=== PATIENT | male | born 1965 | race Caucasian/White ===

== ENCOUNTER → 2018-02-23 11:09 | Outpatient (CLI) | payer OTHER, SELFPAY ==
[2018-02-23 17:44] LABS: Basophils # 0.1 K/mm3 (0-0.2); Basophils % 1.7 % (0.1-2.0); Eosinophils # 0.3 K/mm3 (0.0-0.4); Eosinophils % 4.6 % (0.1-12.0); Hematocrit 42.5 % (42.0-52.0); Hemoglobin 13.9 g/dL (14.1-18.0); Lymphocytes # 1.5 K/mm3 (0.7-4.5); Lymphocytes % 23.1 K/mm3 (10-50); Mean Corpuscular HGB Conc 32.8 g/dL (31.8-35.4); Mean Corpuscular Hemoglobin 30.3 pg (27.0-31.2); Mean Corpuscular Volume 92.4 fl (80-94); Mean Platelet Volume 7.4 fl (7.4-10.4); Monocytes # 0.3 K/mm3 (0.1-1.0); Monocytes % 4.8 % (1.7-9.3); Neutrophils # 4.3 K/mm3 (1.8-7.8); Neutrophils % 65.7 % (37.0-80.0); Platelet Count 282 K/mm3 (142-424); Red Cell Distribution Width 13.1 % (11.5-17.5); White Blood Count 6.6 K/mm3 (4.8-10.8)
[2018-02-23 18:24] LABS: Alanine Aminotransferase 26 U/L (12-78); Albumin Level 3.8 gm/dL (3.4-5.0); Albumin/Globulin Ratio 1.1 (1.1-1.8); Alkaline Phosphatase 61 U/L (46-116); Anion Gap 10.6 mEq/L (5-15); Aspartate Amino Transferase 16 U/L (15-37); Bilirubin,Total 0.5 mg/dL (0.2-1.0); Blood Urea Nitrogen 11 mg/dL (7-18); Calcium 8.3 mg/dL (8.5-10.1); Carbon Dioxide 28 mmol/L (21.0-32.0); Chloride 107 mmol/L (98-107); Chol/HDL Ratio 3.1 (1-3.5); Cholesterol 135 mg/dL (140-200); Creatinine,Serum 1.06 mg/dL (0.70-1.30); Estimated Glomerular Filt Rate 73 ml/min (>60); GFR (African American) 88 ML/MIN (>60); Globulin 3.4 gm/dl (1.3-3.2); Glucose 76 mg/dL (74-106); HDL Cholesterol 44 mg/dL (27-67); LDL Cholesterol 79 mg/dL (0-130); Potassium 4.6 mmoL/L (3.5-5.1); Sodium 141 mmol/L (136-145); T4 (Thyroxine) 9.7 ug/dl (4.7-13.3); Thyroid Stimulating Hormone 1.94 uIU/ml (0.358-3.740); Total Protein,Serum 7.2 gm/dL (6.4-8.2); Triglycerides 58 mg/dL (30-200); VLDL Cholesterol 12 mg/dL (0-40)
[2018-02-25 17:46] LABS: PSA, Free 0.13 ng/mL; Prostate Specific Ag 0.7 ng/mL (0.0-4.0)
[2018-02-28 06:14] LABS: Vitamin D 25 Hydroxy 15.4 ng/mL (30.0-100.0)
== END ==
PROVIDERS: Visit Provider Nurse Practitioner Family
DX: Z00.00 Encounter for general adult medical examination without abnormal findings (principal); F41.9 Anxiety disorder, unspecified; R53.83 Other fatigue
CPT/HCPCS: 80053; 80061; 82652; 84153; 84154; 84436; 84443; 85025

== ENCOUNTER → 2018-05-17 14:19 | Outpatient (CLI) | payer OTHER, SELFPAY ==
--- NOTE | 2018-05-17 14:22 | XR_ITS ---
EXAM: XR lumbar spine 2-3V HISTORY: Low back pain ITS.REASON: pain ORDERING PHYSICIAN: Marcy Ram PATIENT AGE: 52 years COMPARISON: None FINDINGS: Normal alignment. No fracture or dislocation. No lytic or blastic change. There are small endplate osteophytes at L4 and L5. The disc spaces are well-preserved.. Facet arthritic changes are present at L5-S1. IMPRESSION: 1. No acute finding. 2. Mild degenerative changes
--- NOTE | 2018-05-17 14:22 | XR_ITS ---
EXAM: XR thoracic spine 3V HISTORY: Back pain ITS.REASON: pain Comparison: None FINDINGS: There is mild mid thoracic scoliosis convex right with mild wedge compression changes of T7, T8, and T9. Small anterior osteophytes are present at this level. No lytic or blastic change. There is normal alignment. IMPRESSION: Thoracic scoliosis with degenerative change and mild compression changes at T7, T8 and T9. MRI may be of further value to determine the age of the compression changes if clinically warranted. There are no previous exams available for comparison
== END ==
PROVIDERS: PCP Nurse Practitioner Family; Visit Provider Nurse Practitioner Family
DX: M54.5 Low back pain (principal); M54.6 Pain in thoracic spine
CPT/HCPCS: 72072; 72100

== ENCOUNTER 2018-05-24 08:48 | Outpatient (RCR) | payer OTHER, SELFPAY ==
--- NOTE | 2018-05-24 09:49 | HMH.PTOPEV ---
PT Outpatient Evaluation Rehab PT Outpatient Evaluation Start: 05/24/18 09:37 Freq: Status: Active Protocol: Document 05/24/18 09:37 YASIRWHIT (Rec: 05/24/18 09:49 HEATHER [id number]) Electronically Signed By Messi Kumar, PT 05/24/18 09:37 Outpatient Therapy Subjective History Subjective History Patient is a 52 year old male presenting to outpatient PT with reports of chronic lumbar and lower thoracic spine pain starting approximately 15 years ago of insidious onset. No previous PT interventions to report. Pt reports that he is in the process of trying to get approval for disability benefits. Most recent diagnostics indicate mild lumbar spine degenerative changes and moderate thoracic degenerative changes with mild R convex scoliosis. Hx of appendectomy. Chief Complaint Pain Paresthesia Symptom Type Ache Sharp Numbness Symptoms Relieved By Rest/Positioning Symptoms Aggravated By Sitting Standing Bending/Stooping Physical Activity Walking Lifting Prior Functional Limitations Reaching Lifting Housework Standing Sitting Squatting Recreation Activity Walking Stairs Current Functional Limitations Reaching Lifting Housework Standing Sitting Squatting Recreation Activity Walking Stairs Level of pain today (0-10) 4 Pain scale - at its best (0-10) 0 Pain scale - at its worst (0-10) 9 Lumbopelvic Eval Posture Thoracic Spine Posture Standing Position Increased Kyphosis Lumbar Spine Posture Standing Position Neutral Assistive device Assistive Devices None / NA
== END 2018-05-24 08:49 | disposition home or self-care (01) ==
LOC: PT 08:48
PROVIDERS: PCP Nurse Practitioner Family; Visit Provider Nurse Practitioner Family
DX: M54.5 Low back pain (principal)
CPT/HCPCS: 97163

== ENCOUNTER → 2018-06-01 10:19 | Outpatient (CLI) | payer OTHER, SELFPAY ==
--- NOTE | 2018-06-01 10:21 | CT_ITS ---
CT abdomen pelvis w con INDICATION: ITS.REASON: abdominal hernia ORDERING PHYSICIAN: Ryan Lamas MD PATIENT AGE: 52 years COMPARISON: None PROCEDURE: Oral Contrast: . Outpatient oral contrast utilized IV Contrast: 75 cc [id number]. IV TECHNIQUE: Axial images obtained with sagittal and coronal reformats. All CT scans at the facility use one or more dose reduction, viz: automated exposure control, ma/kV adjustment per patient size (including targeted exams where dose is matched to indication, i.e. head), or iterative reconstruction technique. FINDINGS: Lung bases no active disease.. Right Lung: Small nonspecific nodule subpleural anterior aspect RML measuring up to 5 mm size. Axial image 6. Similar tiny area measuring less than 3 mm periphery of the right lung base axial image 5.. Possible granulomas vs scarring right Left Lung:. Tiny 3 mm pleural-based density is likely due to minimal scarring. Mild pleural parenchymal scarring the posterior most left lung base. Very minor. These are benign-appearing features, can be followed.. Abdomen Liver, spleen, pancreas, adrenals satisfactory. Unremarkable. Gallbladder is been removed. No biliary ductal dilatation.. No retroperitoneal adenopathy. A few tiny mesenteric lymph nodes. Nonspecific. tract . Kidneys appear satisfactory. Normal enhancement. No calculi nor obstruction. Ureters unremarkable. Bladder satisfactory. Small prostate. The generous fat along the inguinal canals bilaterally but no inguinal hernia. GI tract. Appendix normal.. Large bowel minimal/Moderate throughout colon... Upper normal wall thickness throughout the sigmoid colon. Generous density region ileocecal valve region, which in part reflects lipomatosis ileocecal valve, with question of site slight additional density just inferior to the IC valve.- May merely be due to stool. However If the patient has not had a screening colonoscopy past 5 day 7 years consider follow-up.. . Generous Fat-containing umbilical hernia. Is actually seen back on 2012 MRI lumbar spine but has increased in size somewhat in the interval. The mouth of this umbilical hernia measuring up to 16 mm AP x 2.2 cm wide.. The hernia sac measures up to 7.5 cm wide 4.8 cm height 4 cm AP. There is some mild hazy appearance of the fat leading in this umbilical hernia as well as slight hazy appearance continue into the intraperitoneal fat mental. This suggests there may be some mild inflammation within this fat. No discrete focal area of epiploic appendicitis but this or similar process might be considered given the slight this wispy appearance within the fat throughout this region.. No bowel loops are involved.. There is a second tiny ventral hernia roughly 3 cm superior to the umbilicus. This nicely seen on sagittal image 54.. This tiny ventral hernia has a less than 5 mm abdominal wall defect in the overall hernia sac measuring less than 2.5 cm maximally. Only some scant wispy density within the fat in this second small hernia. Abdominal Wall: Ovoid mass is seen at the subcutaneous fat at overlying the left upper abdomen. This measures up to 4.7 cm in length x 2.3 cm. Axial image 55. Near fluid density may reflect some type or sebaceous cyst Osseous structures. No significant findings. Facet hypertrophy L5/S1, L4/5 and to lesser degree above.. IMPRESSION 1. generous fat-containing umbilical hernia.. No bowel loops associated. The hernia sac measures up to 7.5 cm wide.. ... There is subtle wispy changes of the fat within this umbilical hernia, as well as extending intraperitoneal.-Nonspecific feature but Could reflect some minor inflammation associated 2. Just superior to the umbilicus, there is a second tiny ventral hernia. Small 5 mm abdomina
== END ==
PROVIDERS: PCP Nurse Practitioner Family; Visit Provider Surgery
DX: K46.9 Unspecified abdominal hernia without obstruction or gangrene (principal)
CPT/HCPCS: 74177; Q9967

== ENCOUNTER → 2018-07-02 09:57 | Outpatient (CLI) | payer OTHER, SELFPAY ==
[2018-07-02 10:47] LABS: Basophils # 0.1 K/mm3 (0-0.2); Basophils % 1.7 % (0.1-2.0); Eosinophils # 0.4 K/mm3 (0.0-0.4); Eosinophils % 6.1 % (0.1-12.0); Hematocrit 40.3 % (42.0-52.0); Hemoglobin 13.1 g/dL (14.1-18.0); Lymphocytes # 1.4 K/mm3 (0.7-4.5); Lymphocytes % 21.8 % (10-50); Mean Corpuscular HGB Conc 32.6 g/dL (31.8-35.4); Mean Corpuscular Hemoglobin 29.1 pg (27.0-31.2); Mean Corpuscular Volume 89.3 fl (80-94); Mean Platelet Volume 6.8 fl (7.4-10.4); Monocytes # 0.3 K/mm3 (0.1-1.0); Monocytes % 5.5 % (1.7-9.3); Neutrophils % 64.8 % (37.0-80.0); Platelet Count 283 K/mm3 (142-424); Red Blood Count 4.51 M/mm3 (4.60-6.20); White Blood Count 6.2 K/mm3 (4.8-10.8)
[2018-07-02 11:16] LABS: Alanine Aminotransferase 34 U/L (12-78); Albumin Level 3.4 gm/dL (3.4-5.0); Albumin/Globulin Ratio 1.1 (1.1-1.8); Alkaline Phosphatase 50 U/L (46-116); Anion Gap 10.7 mEq/L (5-15); Aspartate Amino Transferase 20 U/L (15-37); Bilirubin,Total 0.8 mg/dL (0.2-1.0); Blood Urea Nitrogen 8 mg/dL (7-18); Calcium 8.8 mg/dL (8.5-10.1); Carbon Dioxide 31 mmol/L (21.0-32.0); Chloride 104 mmol/L (98-107); Creatinine,Serum 1.04 mg/dL (0.70-1.30); Estimated Glomerular Filt Rate 74 ml/min (>60); GFR (African American) 90 ML/MIN (>60); Globulin 3.2 gm/dl (1.3-3.2); Glucose 102 mg/dL (74-106); Potassium 4.7 mmoL/L (3.5-5.1); Sodium 141 mmol/L (136-145); Thyroid Stimulating Hormone 1.03 uIU/ml (0.358-3.740); Total Protein,Serum 6.6 gm/dL (6.4-8.2)
[2018-07-03 15:36] LABS: Folate 5.9 ng/mL (>3.0); Vitamin B12 356 pg/mL (232-1245)
== END ==
PROVIDERS: Visit Provider Specialist
DX: R51 Headache (principal); R25.1 Tremor, unspecified
CPT/HCPCS: 36415; 80053; 82607; 82746; 84443; 85025

== ENCOUNTER → 2018-07-04 09:35 | Outpatient (CLI) | payer OTHER, SELFPAY ==
--- NOTE | 2018-07-04 09:37 | MR_ITS ---
MR head/brain wo con HISTORY: Headache, dizziness, memory loss, tremors ITS.REASON: tremor, headache ORDERING PHYSICIAN: Nyla Shipman MD PATIENT AGE: 53 years Comparison: None TECHNIQUE: Standard multiplanar multiecho sequences are performed without contrast. Mild degree of motion artifact present during the exam. This does somewhat limit fine detail. FINDINGS: No midline shift, mass effect, intracranial hemorrhage, or hydrocephalus is evident. No evidence of acute infarction. The cerebellopontine angles, cerebellum, and brain stem are unremarkable. There is normal huerta-white matter differentiation. The hippocampal gyri and temporal horns are unremarkable. The pituitary and optic chiasm and craniocervical junction have an unremarkable appearance. Retention cysts are present in the maxillary sinuses largest on the left 2.3 cm. No mastoid effusion IMPRESSION: Negative MRI of the brain without contrast. No acute finding
== END ==
PROVIDERS: PCP Nurse Practitioner Family; Visit Provider Specialist
DX: R25.1 Tremor, unspecified (principal); R51 Headache
CPT/HCPCS: 70551

== ENCOUNTER → 2018-07-09 15:11 | Outpatient (CLI) | payer OTHER, SELFPAY ==
[2018-07-09 15:40] LABS: Basophils # 0.1 K/mm3 (0-0.2); Eosinophils # 0.5 K/mm3 (0.0-0.4); Eosinophils % 9.4 % (0.1-12.0); Hematocrit 37.8 % (42.0-52.0); Hemoglobin 12.2 g/dL (14.1-18.0); Lymphocytes # 1.5 K/mm3 (0.7-4.5); Lymphocytes % 25.4 % (10-50); Mean Corpuscular HGB Conc 32.4 g/dL (31.8-35.4); Mean Corpuscular Volume 89.5 fl (80-94); Mean Platelet Volume 6.7 fl (7.4-10.4); Monocytes # 0.3 K/mm3 (0.1-1.0); Monocytes % 4.7 % (1.7-9.3); Neutrophils # 3.4 K/mm3 (1.8-7.8); Neutrophils % 58.4 % (37.0-80.0); Platelet Count 283 K/mm3 (142-424); Red Blood Count 4.22 M/mm3 (4.60-6.20); White Blood Count 5.8 K/mm3 (4.8-10.8)
[2018-07-09 16:36] LABS: Anion Gap 10.7 mEq/L (5-15); Blood Urea Nitrogen 8 mg/dL (7-18); Calcium 8.4 mg/dL (8.5-10.1); Carbon Dioxide 31 mmol/L (21.0-32.0); Chloride 105 mmol/L (98-107); Estimated Glomerular Filt Rate 69 ml/min (>60); GFR (African American) 84 ML/MIN (>60); Glucose 87 mg/dL (74-106); Potassium 4.7 mmoL/L (3.5-5.1); Sodium 142 mmol/L (136-145)
== END ==
PROVIDERS: Visit Provider Surgery
DX: K43.9 Ventral hernia without obstruction or gangrene (principal); R22.2 Localized swelling, mass and lump, trunk
CPT/HCPCS: 36415; 80048; 85025

== ENCOUNTER → 2018-07-16 14:26 | Outpatient (CLI) | payer OTHER, SELFPAY | PROVIDERS: Visit Provider Specialist | DX: I10 Essential (primary) hypertension (principal); R06.09 Other forms of dyspnea; R09.02 Hypoxemia; R25.1 Tremor, unspecified | CPT/HCPCS: 94762 ==

== ENCOUNTER → 2018-07-26 07:24 | Outpatient (CLI) | payer OTHER, SELFPAY ==
--- NOTE | 2018-07-26 07:26 | NM_ITS ---
SPECT MYOCARDIAL PERFUSION SCAN, REST AND STRESS: EXERCISE STRESS: [facility] REVIEW QGS EF AND WALL MOTION EVALUATION: QPS - PERFUSION EVALUATION: HISTORY: Abnormal EKG, SOB, HTN PROCEDURE: Rest imaging performed after administration of10.49 millicuries Tc MIBI. Dose administered at7:35 a.m., with imaging thereafter. Stress imaging was then performed following6 minutes of exercise stress. The patient achieved a heart [id number] with projected heart rate of140 . Resting BP135/75 with stress 160/84. At maximum exercise stress,32.8 millicuries Tc MIBI administered at8:45 a.m. with [id number] minutes thereafter. FINDINGS: Perfusion Evaluation: The single slice spect images as well as the [facility] bull's-eye data summary were reviewed. Wall Motion and Ejection Fraction Evaluation: Gated SPECT review and analysis used to evaluate these features. There is a 54 % left ventricular ejection fraction. There seems to be good wall motion Stress images reveal mildly decreased activity in the inferior wall while rest images uniform myocardial activity. Gated images calculated ejection with normal wall motion IMPRESSION: Reversible ischemia throughout the inferior wall normal ejection fraction normal wall motion. This a high risk stress test based on the large amount of reversible myocardial
--- NOTE | 2018-07-26 07:47 | HMH.ITSHM ---
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 []ASA VITAMIN D OMEPRAZOLE HYDROXYZINE PROPRANOLOL
== END ==
PROVIDERS: PCP Nurse Practitioner Family; Visit Provider Internal Medicine Cardiovascular Disease
DX: F41.9 Anxiety disorder, unspecified (principal); I10 Essential (primary) hypertension; R06.09 Other forms of dyspnea; R12 Heartburn; R94.31 Abnormal electrocardiogram [ECG] [EKG]; Z82.49 Family history of ischemic heart disease and other diseases of the circulatory system
CPT/HCPCS: 78452; 93017; 93306; A9502

== ENCOUNTER → 2018-08-29 14:53 | Outpatient (CLI) | payer OTHER, SELFPAY | PROVIDERS: PCP Emergency Medicine; Visit Provider Internal Medicine Cardiovascular Disease | DX: G47.33 Obstructive sleep apnea (adult) (pediatric) (principal); R06.83 Snoring; R40.0 Somnolence; F41.9 Anxiety disorder, unspecified; G47.9 Sleep disorder, unspecified; I10 Essential (primary) hypertension; R06.09 Other forms of dyspnea; R12 Heartburn; R94.31 Abnormal electrocardiogram [ECG] [EKG]; Z82.49 Family history of ischemic heart disease and other diseases of the circulatory system | CPT/HCPCS: 95806 ==

== ENCOUNTER → 2018-09-03 12:02 | Outpatient (CLI) | payer OTHER, SELFPAY ==
[2018-09-03 13:38] LABS: Anion Gap 9.6 mEq/L (5-15); Blood Urea Nitrogen 19 mg/dL (7-18); Calcium 8.9 mg/dL (8.5-10.1); Carbon Dioxide 33 mmol/L (21.0-32.0); Chloride 101 mmol/L (98-107); Creatinine,Serum 1.34 mg/dL (0.70-1.30); Estimated Glomerular Filt Rate 55 ml/min (>60); GFR (African American) 67 ML/MIN (>60); Glucose 94 mg/dL (74-106); Potassium 4.6 mmoL/L (3.5-5.1); Sodium 139 mmol/L (136-145)
== END ==
PROVIDERS: Visit Provider Internal Medicine Cardiovascular Disease
DX: I25.10 Atherosclerotic heart disease of native coronary artery without angina pectoris (principal); F41.9 Anxiety disorder, unspecified; I50.9 Heart failure, unspecified; R06.09 Other forms of dyspnea; G47.33 Obstructive sleep apnea (adult) (pediatric); G47.9 Sleep disorder, unspecified; R06.83 Snoring; R12 Heartburn; R40.0 Somnolence; R94.31 Abnormal electrocardiogram [ECG] [EKG]; R94.39 Abnormal result of other cardiovascular function study; Z82.49 Family history of ischemic heart disease and other diseases of the circulatory system
CPT/HCPCS: 36415; 80048; 83880

== ENCOUNTER → 2019-07-03 09:09 | Outpatient (CLI) | payer OTHER, SELFPAY ==
--- NOTE | 2019-07-03 09:09 | CA_ITS ---
APPROVED REPORT EXAM: Comprehensive 2D, Doppler, and color-flow Echocardiogram [employer] Service Representative: Nerissa Montague RT(R) Ht: 5 ft 9 in Wt: 302lbs BSA: 2.46 BP: 138/82 mmHg Indications: Congestive Heart Failure, Shortness of Breath, CAD, Hyperlipidemia, Hypertension,ELISABETH,Edema,Obesity 2D Dimensions LVOT 2.10 cm (M/F) 1.5-2.5 M-Mode Dimensions RVDd 2.76 cm (0.9-2.6) LA Diam 3.80 cm (1.9-4.0) LVDd 5.77 cm (3.5-5.7) Ao Diam 3.30 cm (2.0-3.7) LVDs 3.73 cm (3.5-5.7) AV Cusp 2.10 cm (1.5-2.6) IVSd 1.23 cm (0.6-1.1) PWd 1.02 cm (0.6-1.1) EF (Teich) 64.00% FS 35.40% EDV (Teich) 164.60 mL ESV (Teich) 59.30 mL LV Diastology E/A Ratio 0.95 Mitral Valve MV A Velocity 58.00 (40-130 cm/s) Left Ventricle Left atrium is mildly enlarged, left ventricle is normal size, mild concentric left ventricular hypertrophy, visually estimated ejection fraction 55% with no regional wall motion abnormality, grade 1 diastolic dysfunction seen without tissue Doppler evidence of raise left atrial pressure. Right Ventricle Right atrium and right ventricular normal size and contractility. Aortic Valve Aortic valve is minimally thickened and fibrosed, there is no aortic stenosis or aortic insufficiency. Mitral Valve Mitral valve is grossly normal, there is mild mitral regurgitation. Tricuspid Valve Tricuspid valve is grossly normal, there is mild tricuspid regurgitation. Pulmonic Valve Pulmonic valve is poorly visualized. Great Vessels Aortic root is normal size. Pericardium No significant pericardial effusion noted. Conclusion 1. Mildly enlarged left atrium, normal left ventricular size, mild concentric left ventricular hypertrophy, visually estimated ejection fraction 55% with no regional wall motion abnormality, grade 1 diastolic dysfunction seen without tissue Doppler evidence of raise left atrial pressure. 2. Mild mitral and tricuspid regurgitation. 3. No significant pericardial effusion noted. Electronically signed by : Lion Aguirre, 07/04/2019 10:36:35
[2019-07-03 11:37] LABS: Anion Gap 14.2 mEq/L (5-15); Blood Urea Nitrogen 15 mg/dL (7-18); Calcium 8.8 mg/dL (8.5-10.1); Carbon Dioxide 29 mmol/L (21.0-32.0); Chloride 108 mmol/L (98-107); Creatinine,Serum 1.21 mg/dL (0.70-1.30); Estimated Glomerular Filt Rate 62 ml/min (>60); GFR (African American) 75 ML/MIN (>60); Glucose 89 mg/dL (74-106); Potassium 4.2 mmoL/L (3.5-5.1); Sodium 147 mmol/L (136-145)
== END ==
PROVIDERS: PCP Nurse Practitioner Family; Visit Provider Internal Medicine Cardiovascular Disease
DX: I10 Essential (primary) hypertension (principal); I25.10 Atherosclerotic heart disease of native coronary artery without angina pectoris; I50.9 Heart failure, unspecified
CPT/HCPCS: 36415; 80048; 83880; 93306

== ENCOUNTER → 2019-08-08 15:01 | Outpatient (CLI) | payer OTHER, SELFPAY ==
[2019-08-09 15:31] LABS: Microscopic, Urine URINE MICROSCOPIC (MICROSCOPIC)
[2019-08-09 15:51] LABS: Appearance,Urine Clear (Clear); Color,Urine Yellow (Yellow); Protein,Urine Negative (Negative); Specific Gravity, Urine 1.015 (1.005-1.030)
[2019-08-09 15:52] LABS: Bilirubin,Urine Negative (Negative); Blood, Urine 3+ (Negative); Glucose,Urine (UA) Negative (Negative); Ketones,Urine Negative (Negative); Leukocyte Esterase,Urine Negative (Negative); Nitrate,Urine Negative (Negative); Urobilinogen,Urine 0.2 EU/dl (0.2)
== END ==
LOC: LAB 08-09 15:02 → LAB.DROPOF 08-09 15:02
PROVIDERS: Visit Provider Nurse Practitioner Family
DX: R10.9 Unspecified abdominal pain (principal)
CPT/HCPCS: 81001; 87086

== ENCOUNTER → 2019-08-09 10:56 | Outpatient (CLI) | payer OTHER, SELFPAY ==
--- NOTE | 2019-08-09 11:07 | XR_ITS ---
PROCEDURE: XR CHEST 2V CLINICAL HISTORY: pain COMPARISON: [id number] XR thoracic spine 3V from 05/17/2018 FINDINGS: The cardiomediastinal silhouette and pulmonary vascularity are within normal limits. The lungs are clear without infiltrates, suspicious nodules, or pleural effusions. Chronic wedging of T9 IMPRESSION: No acute finding Dictated by: Jamel Maradiaga MD 08/09/2019 11:22 Electronically signed by Jamel Maradiaga MD in [place] 08/09/2019 11:22
[2019-08-09 12:45] LABS: Amylase 59 U/L (25-115); Lipase 122 u/L (73-393); Prostate Specific Ag, Diagnost 1.52 ng/mL (0.0-4.0)
== END ==
PROVIDERS: Visit Provider Nurse Practitioner Family
DX: R10.9 Unspecified abdominal pain (principal); R34 Anuria and oliguria
CPT/HCPCS: 71046; 82150; 83690; 84153

== ENCOUNTER → 2019-12-03 09:04 | Outpatient (CLI) | payer OTHER, SELFPAY ==
[2019-12-03 09:06] LABS: Adenovirus F 40/41, stool Not Detected (NotDetected); Astrovirus Not Detected (NotDetected); Campylobacter Not Detected (NotDetected); Cryptosporidium Not Detected (NotDetected); Cyclospora Cayetanesis Not Detected (NotDetected); Entamoeba histolytica Not Detected (NotDetected); Enteroaggregative E coli Not Detected (NotDetected); Enteropathogenic E coli Not Detected (NotDetected); Enterotoxigenic E coli Not Detected (NotDetected); Giardia lamblia Not Detected (NotDetected); Norovirus Not Detected (NotDetected); Plesimonas Shigalloides, PCR Not Detected (NotDetected); Rotavirus A Not Detected (NotDetected); Salmonella, PCR Not Detected (NotDetected); Sapovirus Not Detected (NotDetected); Shiga-like toxin E coli Not Detected (NotDetected); Shigella Enterovasive E coli Not Detected (NotDetected); Vibrio Cholerae Not Detected (NotDetected); Vibrio, PCR Not Detected (NotDetected); Yersinia Entercolitica, PCR Not Detected (NotDetected)
--- NOTE | 2019-12-03 09:09 | XR_ITS ---
PROCEDURE: XR ABDOMEN MIN 2V CLINICAL INDICATION: Abd pain COMPARISON: XR CHEST 2V from 12/03/2019 FINDINGS: Bowel gas pattern is nonspecific. The study is somewhat limited secondary to patient's body habitus and difficulty and getting the whole abdomen on the exam. There are a few gas-filled small bowel loops in the mid abdominal region which is nonspecific. There are few small air-fluid levels in the right lower quadrant. No intestinal obstruction or free air. No acute bony anomalies. Prior cholecystectomy. IMPRESSION: Nonspecific nonacute appearing bowel gas pattern Dictated by: Jamel Maradiaga MD 12/03/2019 13:36 Electronically signed by Jamel Maradiaga MD in [place] 12/03/2019 13:36
--- NOTE | 2019-12-03 09:09 | XR_ITS ---
PROCEDURE: XR CHEST 2V CLINICAL HISTORY: SOA The shortness of air and pain COMPARISON: XR CHEST 2V from 08/09/2019 XR CHEST PORTABLE from 10/27/2019 CT CHEST W CON from 10/27/2019 FINDINGS: The cardiomediastinal silhouette and pulmonary vascularity are within normal limits. There is mild perihilar bronchial thickening. No lobar consolidation or collapse. There is mild thoracic kyphosis with mild wedging of mid dorsal vertebral bodies unchanged from the previous CT scan IMPRESSION: Peribronchial thickening suggesting bronchitis otherwise negative. Previously noted infiltrates on the chest CT of 10/27/2019 was below limits of resolution on the radiograph of the same day. Dictated by: Jamel Maradiaga MD 12/03/2019 13:34 Electronically signed by Jamel Maradiaga MD in [place] 12/03/2019 13:34
[2019-12-03 13:58] LABS: Clostridium Difficile A/B, PCR Detected (NotDetected)
== END ==
PROVIDERS: Visit Provider Nurse Practitioner Family
DX: R19.7 Diarrhea, unspecified (principal); R06.02 Shortness of breath; R10.9 Unspecified abdominal pain; A04.72 Enterocolitis due to Clostridium difficile, not specified as recurrent
CPT/HCPCS: 71046; 74019; 87507

== ENCOUNTER → 2020-07-15 09:34 | Outpatient (CLI) | payer OTHER, SELFPAY ==
[2020-07-15 11:10] LABS: Coronavirus 19 IgG Antibody Negative (Negative); Coronavirus 19 IgM Antibody Negative (Negative)
== END ==
PROVIDERS: Visit Provider Specialist
DX: Z01.818 Encounter for other preprocedural examination (principal); Z03.818 Encounter for observation for suspected exposure to other biological agents ruled out; G47.33 Obstructive sleep apnea (adult) (pediatric)
CPT/HCPCS: 36415; 86328

== ENCOUNTER → 2020-07-16 20:21 | Outpatient (CLI) | payer OTHER, SELFPAY | PROVIDERS: PCP Emergency Medicine; Visit Provider Specialist | DX: G47.31 Primary central sleep apnea (principal); F11.11 Opioid abuse, in remission | CPT/HCPCS: 95811 ==

== ENCOUNTER → 2020-09-08 13:37 | Outpatient (CLI) | payer OTHER, SELFPAY ==
--- NOTE | 2020-09-08 13:38 | CA_ITS ---
APPROVED REPORT EXAM: Comprehensive 2D, Doppler, and color-flow Echocardiogram [employer] Worker: Nerissa Montague RT(R) Ht: 5 ft 9 in Wt: 298lbs BSA: 2.45 BP: 138/73 mmHg Indications: OBESITY, PATEL, HTN, CAD, ELISABETH, DIASTOLIC DYSFUNCTION Echo Enhancing Agent Indication: Endocardial border delineation Agent(s) / Amount(s) Used: Definity 2 cc Comments: LARGE BODY HABITUS WITH POOR ACOUSTIC WINDOWS 2D Dimensions LVOT 2.33 cm (M/F) 1.5-2.5 M-Mode Dimensions RVDd 3.61 cm (0.9-2.6) LA Diam 3.63 cm (1.9-4.0) LVDd 3.30 cm (3.5-5.7) Ao Diam 2.83 cm (2.0-3.7) LVDs 2.50 cm (3.5-5.7) IVSd 0.89 cm (0.6-1.1) PWd 1.20 cm (0.6-1.1) EF (Teich) 49.40% FS 24.20% EDV (Teich) 44.10 mL ESV (Teich) 22.30 mL LV Diastology E Decel Time 260.00 (160-240 msec) E/A Ratio 0.95 MED E' 9.70 (< 7 cm/sec) E'/MED E' Ratio 9.97 (>14) LAT E' 10.40 (<10 cm/sec) E/LAT E' Ratio 9.30 (>14) Mitral Valve MV E Max Jr. 97.00 (40-130 cm/s) MV A Velocity 101.00 (40-130 cm/s) E/A Ratio 0.95 MV Decel. Time 260.00 (160-240 ms) MV PHT 76.00 ms Left Ventricle Left atrium is mildly enlarged, left ventricle is normal size, mild concentric left ventricular hypertrophy, visually estimated ejection fraction 55% with no regional wall motion abnormality, Definity contrast was utilized to delineate the endocardial surfaces, there is no left ventricular thrombus seen. Right Ventricle Right atrium and right ventricle are mildly enlarged with normal contractility. Aortic Valve Aortic valve is minimally thickened and fibrosed, there is no aortic stenosis or aortic insufficiency. Mitral Valve Mitral valve is grossly normal, there is trace mitral regurgitation. Tricuspid Valve Tricuspid valve grossly normal, there is trace tricuspid regurgitation, tricuspid regurgitation jet velocity is inadequate for calculation of the right ventricular systolic pressure. Pulmonic Valve Pulmonic valve is poorly visualized. Great Vessels Aortic root is normal size. Pericardium No significant pericardial effusion noted. Conclusion 1. Mildly enlarged left atrium, normal left ventricular size, mild concentric left ventricle hypertrophy, visually estimated ejection fraction 55% with no regional wall motion abnormality, grade 1 diastolic dysfunction seen without tissue Doppler evidence of raise left atrial pressure. 2. Trace mitral and tricuspid 3. No significant pericardial effusion noted. Electronically signed by : Lion Aguirre, 09/09/2020 06:28:05
--- NOTE | 2021-01-09 01:54 | PC.NURSE ---
Medical record sent to [facility]
== END ==
PROVIDERS: PCP Emergency Medicine; Visit Provider Nurse Practitioner Family
DX: R06.00 Dyspnea, unspecified (principal)
CPT/HCPCS: 93306; Q9957

== ENCOUNTER → 2021-02-12 10:10 | Outpatient (CLI) | payer OTHER, SELFPAY ==
[2021-02-12 10:46] LABS: Basophils # 0.1 K/mm3 (0-0.2); Basophils % 1.7 % (0.1-2.0); Eosinophils # 0.4 K/mm3 (0.0-0.4); Eosinophils % 7.6 % (0.1-12.0); Hematocrit 26.5 % (42.0-52.0); Hemoglobin 8.3 g/dL (14.1-18.0); Lymphocytes # 1.2 K/mm3 (0.7-4.5); Lymphocytes % 24.5 % (10-50); Mean Corpuscular HGB Conc 31.5 g/dL (31.8-35.4); Mean Corpuscular Hemoglobin 25.3 pg (27.0-31.2); Mean Corpuscular Volume 80.3 fl (80-94); Mean Platelet Volume 7.1 fl (7.4-10.4); Monocytes # 0.3 K/mm3 (0.1-1.0); Monocytes % 5.1 % (1.7-9.3); Neutrophils # 3.1 K/mm3 (1.8-7.8); Neutrophils % 61.2 % (37.0-80.0); Platelet Count 326 K/mm3 (142-424); Red Cell Distribution Width 17.6 % (11.5-17.5)
[2021-02-12 11:04] LABS: Chloride 109 mmol/L (98-107); Potassium 3.8 mmoL/L (3.5-5.1); Sodium 143 mmol/L (136-145)
[2021-02-12 11:06] LABS: Bilirubin,Unconjugated 0.1 mg/dL (0.0-1.1); Blood Urea Nitrogen 26 mg/dl (9-20); Estimated Glomerular Filt Rate 42 ml/min (>60); GFR (African American) 51 ML/MIN (>60)
[2021-02-12 11:07] LABS: Alanine Aminotransferase 18 U/L (12-78); Albumin Level 3.8 g/dl (3.5-5.0); Alkaline Phosphatase 54 U/L (38-126); Anion Gap 9.8 mEq/L (5-15); Aspartate Amino Transferase 34 U/L (17-59); Bilirubin,Direct 0.3 mg/dl (0.0-0.4); Bilirubin,Indirect 0.1 mg/dL (0.0-0.9); Bilirubin,Total 0.4 mg/dl (0.2-1.3); Calcium 8.2 mg/dl (8.4-10.2); Carbon Dioxide 28 mmol/L (22.0-30.0); Chol/HDL Ratio 2.8 (1-3.5); Cholesterol 110 mg/dl (140-200); Glucose 92 mg/dl (74-100); HDL Cholesterol 39 mg/dl (40-60); Total Protein,Serum 6.4 g/dl (6.3-8.2); Triglycerides 45 mg/dl (30-150); VLDL Cholesterol 9 mg/dL (0-40)
[2021-02-12 11:17] LABS: NT Pro Brain Natriuretic Pep. 421 pg/mL (0-125)
[2021-02-12 11:18] LABS: Direct LDL Cholesterol 58.55 mg/dL (100-129)
[2021-02-12 11:24] LABS: Free T4 (Free Thyroxine) 1.28 ng/dl (0.78-2.19)
[2021-02-12 11:40] LABS: Thyroid Stimulating Hormone 1.56 uIU/mL (0.465-4.68)
== END ==
PROVIDERS: Visit Provider Physician Assistant
DX: R06.00 Dyspnea, unspecified (principal); I11.0 Hypertensive heart disease with heart failure; I50.9 Heart failure, unspecified; R94.30 Abnormal result of cardiovascular function study, unspecified; I25.10 Atherosclerotic heart disease of native coronary artery without angina pectoris; R60.9 Edema, unspecified; R63.5 Abnormal weight gain; F11.10 Opioid abuse, uncomplicated; G47.33 Obstructive sleep apnea (adult) (pediatric); K02.9 Dental caries, unspecified; Z87.898 Personal history of other specified conditions
CPT/HCPCS: 36415; 80048; 80061; 80076; 83880; 84439; 84443; 85025

== ENCOUNTER → 2021-02-19 11:27 | Outpatient (CLI) | payer OTHER, SELFPAY ==
[2021-02-19 12:03] LABS: Basophils # 0.1 K/mm3 (0-0.2); Eosinophils # 0.3 K/mm3 (0.0-0.4); Eosinophils % 4.4 % (0.1-12.0); Hemoglobin 9.2 g/dL (14.1-18.0); Lymphocytes # 1.2 K/mm3 (0.7-4.5); Lymphocytes % 20.8 % (10-50); Mean Corpuscular HGB Conc 31.8 g/dL (31.8-35.4); Mean Corpuscular Hemoglobin 24.9 pg (27.0-31.2); Mean Corpuscular Volume 78.3 fl (80-94); Mean Platelet Volume 7.4 fl (7.4-10.4); Monocytes # 0.2 K/mm3 (0.1-1.0); Monocytes % 4.1 % (1.7-9.3); Neutrophils % 69.7 % (37.0-80.0); Platelet Count 342 K/mm3 (142-424); Red Blood Count 3.71 M/mm3 (4.60-6.20); White Blood Count 5.8 K/mm3 (4.8-10.8)
[2021-02-19 12:05] LABS: Hematocrit 29.1 % (42.0-52.0)
[2021-02-19 12:53] LABS: Chloride 110 mmol/L (98-107); Sodium 143 mmol/L (136-145)
[2021-02-19 12:54] LABS: Potassium 4.3 mmoL/L (3.5-5.1)
[2021-02-19 12:56] LABS: Blood Urea Nitrogen 11 mg/dl (9-20); Estimated Glomerular Filt Rate 62 ml/min (>60); GFR (African American) 76 ML/MIN (>60)
[2021-02-19 12:57] LABS: Anion Gap 11.3 mEq/L (5-15); Calcium 8.6 mg/dl (8.4-10.2); Carbon Dioxide 26 mmol/L (22.0-30.0); Glucose 91 mg/dl (74-100); Iron 25 ug/dL (49-181)
[2021-02-19 13:06] LABS: Total Iron Binding Capacity 374 ug/dL (261-462)
[2021-02-19 13:32] LABS: Ferritin 11.4 ng/ml (17.9-464)
== END ==
PROVIDERS: Visit Provider Emergency Medicine
DX: D64.9 Anemia, unspecified (principal)
CPT/HCPCS: 36415; 80048; 82728; 83540; 83550; 85025

== ENCOUNTER → 2021-02-23 13:06 | Outpatient (CLI) | payer OTHER, SELFPAY | PROVIDERS: Visit Provider Surgery | DX: Z01.812 Encounter for preprocedural laboratory examination (principal); Z11.52 Encounter for screening for COVID-19 | CPT/HCPCS: U0003 ==

== ENCOUNTER 2021-02-25 12:15 | Observation (INO) | payer OTHER, SELFPAY ==
[2021-02-24 10:24] VITALS: BMI 48.7
[2021-02-25] VITALS (16 sets, daily range): BP systolic 105–149; BP diastolic 54–81; PULSE 65–88; RESP 18–36; TEMP 36.8–37.2; O2SAT 95–100; BMI 47.4
--- NOTE | 2021-02-25 07:08 | HMH.ANESCL ---
[facility] Anesthesia Checklist - Patient Identification Patient Identification: Arm Band - Structural Data Admitted From: Home Planned Operative Procedure/s: colonoscopy Consent for Planned Operative Procedure(s) Verified: Yes Verified Documents: Surgical Consent, History and Physical - NPO Status Verified Time NPO: 00:00 - Additional verifications Anesthesia Reactions: No Hx Blood Transfusions: No Blood Transfusion Reaction: Yes - Airway Assessment C-Spine Mobility Assessed: Yes (mp2) TMJ Mobility Assessed: Yes Dentition: Poor Dentition - Neurological Assessment Level of Consciousness: Awake, Alert - Anesthesia Plan Anesthesia Risk discussed: Yes Anesthesia Plan: Verified ASA Class: III Anesthesia Type: MAC [facility] History I have reviewed the patient's past medical history: Yes Medical History: Reports:: Anxiety, Congestive Heart Failure, Coronary Artery Disease, Depression, Gall Bladder Disease, Gastroesophageal Reflux Disease(GERD), Hiatal Hernia, Hypertension, Migraine Denies:: Cancer, Diabetes Mellitus Type 1, Diabetes Mellitus Type 2, Internal Pacemaker, MRSA, Seizures *Have you ever received a pneumonia vaccine?: No *Have you received a flu vaccine this season?: Yes Other Medical History: Reports: Blood Transfusion Reaction, Cataracts, Other Anesthesia experience/problems:: nac Other Surgeries: Yes: Cholecystectomy, Colonoscopy, EGD, Hernia Repair. No: Pacemaker Amputation: No Fractures: No - *Social History Last grade of school completed: 11th or 12th Smoking Status: Never smoker Alcohol Intake: never Alcohol Intake Frequency:: other Substance Use Type: former substance user, heroin *Occupational Status:: unemployed Housing: house Household Members: spouse *Travel in the last 8 weeks: None - Psychiatric History Pschychiatric History:: Reports:: Anxiety, Depression Family Hx:: Cancer, Coronary Artery Disease, Heart Attack
--- NOTE | 2021-02-25 08:22 | HMH.SCOPE ---
- Procedure: Date: 02/25/21 Patient Date of :: 1965 Procedure Performed:: Colonoscopy with polypectomy Indications:: Anemia Heme positive stool Performing Provider:: Alejandro Guillen MD Referring Provider:: . Sedation:: Monitored anesthesia care Procedure:: After informed consent was obtained the patient was taken to the endoscopy suite. Sedation ensued after the patient was transferred to the left lateral decubitus position. Pulse, blood pressure, and oxygen saturation were monitored throughout the procedure. Digital rectal exam revealed no significant abnormality. The colonoscope was placed in position. The entire colon was evaluated. The colonoscope was carefully removed and the patient was transferred to recovery in stable condition. Please see findings and specimens below for detail. Findings:: Bowel preparation relatively fair Fairly significant spasticity, lack of relaxation, and tortuosity Sigmoid polyp Mass-like complex polypoid lesion in the cecum (at appendiceal opening) Note: Utilizing snare with multiple passes and a retrieval net to essentially break up the lesion into smaller pieces that could be removed endoscopically at least the majority of the cecal mass-like lesion was removed. The other polypoid lesion(s) was(ere) not removed in order to avoid any possible confusion in terms of microscopic analysis. Specimens:: Multiple pieces of cecal lesion Recommendations:: Follow-up pathology Short-term repeat colonoscopy Possible right colectomy in near future Complications:: No immediate. Postprocedural flat/upright films ordered. Estimated blood obtained (mL): 1
--- NOTE | 2021-02-25 08:25 | SUR.PHASEII ---
DR. DAVIS AT BEDSIDE EXPLAINING TO PT AND RESULTS OF COLONOSCOPY. MD PLACED ORDER FOR ABDOMINAL XRAY AT 1030. MD INSTRUCTED PT AND THAT PT NEEDS TO BE ON SOFT DIET FOR SEVERAL DAYS SUCH MILK SHAKES AND OATMEAL AND TO TAKE STOOL SOFTENERS TO PREVENT ANY CONSTIPATION AT HOME. VERBALIZED UNDERSTANDING OF THIS. DR. DVAIS INSTRUCTED THIS RN THAT MAY GET FLAT AND UPRIGHT AT ANY TIME IF PT EXPERIENCES ABDOMINAL PAIN.
--- NOTE | 2021-02-25 10:30 | XR_ITS ---
PROCEDURE: XR ACUTE ABDOMEN SERIES CLINICAL INDICATION: post-colonoscopy pain COMPARISON: No exams were available for comparison FINDINGS: There is air under the right hemidiaphragm. Otherwise nonspecific nonobstructive bowel gas pattern is noted. Surgical clips in the right upper quadrant consistent with cholecystectomy. Visualized lungs are clear. IMPRESSION: Air under the right hemidiaphragm concerning for free intraperitoneal air. Results were discussed with Dr. Guillen at 11:05 a.m. on February 25, 2021. Dictated by: Radhika Bacon 02/25/2021 11:05 Radhika Bacon in [place] 02/25/2021 11:05
--- NOTE | 2021-02-25 10:47 | SUR.PHASEII ---
PT TO RADIOLOGY PER W/C
--- NOTE | 2021-02-25 11:06 | CT_ITS ---
PROCEDURE: CT ABDOMEN PELVIS WO CON CLINICAL INDICATION: free air COMPARISON: CT ABDPELW CT abdomen pelvis w con from 06/01/[address] ABDOMEN PELVIS W CON from 10/27/2019 TECHNIQUE: Axial images obtained with sagittal and coronal reformats. All CT scans at the facility use one or more dose reduction, viz: automated exposure control, ma/kV adjustment per patient size (including targeted exams where dose is matched to indication, i.e. head), or iterative reconstruction technique. FINDINGS: LOWER THORAX: Minor bibasal atelectasis is noted. 3 millimeter nodule in the right middle and left lower lobes, unchanged compared to prior studies. ABDOMEN & PELVIS: There are foci of free intraperitoneal air, predominantly in the right subphrenic space and in the right upper quadrant. The visualized colon is normal in caliber. Few colonic diverticula are noted without evidence of diverticulitis. The appendix is normal. Few scattered mesenteric lymph nodes are noted, not significant by size criteria. Evaluation of the upper abdominal solid viscera are limited due to lack of intravenous contrast. The liver, spleen, right adrenal gland, and kidneys are unremarkable. Cholecystectomy is noted. No intra or extrahepatic biliary dilation. Focal hypodense lesion is noted in the left adrenal gland measuring 1.5 centimeters, noted on the prior studies dating back to June 01, 2018. This most likely represents an adrenal adenoma. The pancreas is unremarkable. The visualized abdominal aorta is unremarkable. No free fluid is noted. The prostate gland is unremarkable. Small bilateral fat containing inguinal hernias. Small fat containing umbilical hernia is noted. Multilevel degenerative changes of the lumbar spine. IMPRESSION: Foci of free intraperitoneal air predominantly in the right upper quadrant and right subphrenic space. Perforation is suspected. Dictated by: Radhika Bacon 02/25/2021 11:47 Radhika Bacon in [place] 02/25/2021 11:47
--- NOTE | 2021-02-25 11:15 | SUR.PHASEII ---
RESULTS FROM [facility] XRAY IN AND DR DAVIS ORDERING CT SCAN. PT TAKEN TO CT PER RADIOLOGY STAFF.
--- NOTE | 2021-02-25 11:59 | SUR.PHASEII ---
CT SCAN RESULTS CALLED TO DR DAVIS BY RADIOILOGIST. AWAITING ORDERS. PT HAS REMAINED NPO AND HAS REPORTED NO PAIN. VSS.
--- NOTE | 2021-02-25 12:08 | SUR.PHASEII ---
DR DAVIS AT BEDSIDE. DISCUSSING POC, TO BE ADMITTED FOR OBSERVATION. PT STABLE AT THIS TIME. VSS, NO C/O PAIN.
--- NOTE | 2021-02-25 12:40 | P.CONPHA_ITS ---
[facility] Pharmacy VTE Monitoring - Patient Demographics Admission date: 02/25/21 Report Date: 02/25/21 Time: 12:40 Allergies/Adverse Reactions: Patient Allergies No Known Allergies Allergy (Verified 02/17/21 10:53) Height: 1.75 m Weight: 149.685 kg - VTE Risk Clinical Trial Participant: No - Prophylaxis VTE Prophylaxis Ordered?: Yes Types of VTE Prophylaxis: IPCS Knee High, Pharmacological Pharmacologic Type: Enoxaparin
--- NOTE | 2021-02-25 13:21 | PC.NURSE ---
Post op vitals complete per post op report
--- NOTE | 2021-02-25 14:38 | HMH.GSHP ---
HPI HPI: This 55-year-old gentleman who underwent a colonoscopy earlier today. He was found to have a very complex polypoid lesion at the appendiceal orifice. A very large percentage of the lesion was excised by way of snare polypectomy. Complete excision could not be confirmed. Due to the exceptionally difficult nature of the procedure, follow-up abdominal films were obtained. Some extraluminal air was noted in the right upper quadrant. A follow-up CT scan without contrast confirmed extraluminal air. The patient did have some mild to moderate discomfort; however, no signs consistent with peritonitis were noted. The decision was made to initially proceed with admission for IV antibiotics, serial abdominal exams, and ongoing discussion with regard to surgical management. Forwarded from recent office evaluation: This is a 55-year-old gentleman seen in consultation from Dr. Huynh for colonoscopy. He has recently been diagnosed with anemia and blood per rectum. He describes kind of dark blood per rectum. His symptoms are associated with bowel movements; however, some blood is noted in between . He states that he underwent esophagogastroduodenoscopy at the [facility] about 2 to 3 weeks ago . He believes the scope was pretty much normal . [facility] History Medical History: Reports:: Anxiety, Congestive Heart Failure, Coronary Artery Disease, Depression, Gall Bladder Disease, Gastroesophageal Reflux Disease(GERD), Hiatal Hernia, Hypertension, Migraine Denies:: Cancer, Diabetes Mellitus Type 1, Diabetes Mellitus Type 2, Internal Pacemaker, MRSA, Seizures *Have you ever received a pneumonia vaccine?: No *Have you received a flu vaccine this season?: Yes Other Medical History: Reports: Anemia, Blood Transfusion Reaction, Cataracts, Other Anesthesia experience/problems:: nac Other Surgeries: Yes: Cholecystectomy, Colonoscopy, EGD, Hernia Repair. No: Pacemaker Amputation: No Fractures: No - *Social History Last grade of school completed: 11th or 12th Smoking Status: Never smoker Alcohol Intake: never Alcohol Intake Frequency:: other Substance Use Type: former substance user, heroin *Occupational Status:: disabled Housing: apartment Household Members: spouse *Travel in the last 8 weeks: None - Psychiatric History Pschychiatric History:: Reports:: Anxiety, Depression Family Hx:: Cancer, Coronary Artery Disease, Heart Attack Review of Systems - Constitutional Denies chills - Eyes Denies change in vision - ENT Denies difficulty swallowing - *Cardiovascular Denies chest pain - *Respiratory Denies cough - *Gastrointestinal Reports abdominal pain - *Genitourinary Denies blood in urine - *Musculoskeletal Denies deformity - Integumentary/Breasts Denies new lesions - *Neurologic Denies abnormal movements - Psychiatric Denies anxiety - Endocrine Denies cold intolerance - Hematologic/Lymphatic Denies enlarged lymph nodes - Allergic/Immunologic Denies GI upset with certain foods Meds Home Medications Medication Instructions Recorded Confirmed Type hydroxyzine HCl 25 mg tablet 25 mg PO BID PRN 02/10/21 02/25/21 History furosemide 40 mg tablet 40 mg PO DAILY tab 02/12/21 02/24/21 History metoprolol succinate 25 mg 25 mg PO DAILY tab 02/12/21 02/24/21 History tablet,extended release 24 hr Aspirin [Low Dose Aspirin EC] 81 mg PO DAILY 02/24/21 02/24/21 History Buspirone HCl [Buspar 5mg tablet] 5 mg PO BID 02/24/21 02/24/21 History Losartan Potassium [Cozaar 50mg 12.5 mg PO DAILY 02/24/21 02/24/21 History Tablets] Omeprazole 40 mg PO DAILY 02/24/21 02/24/21 History Allergies Allergy/AdvReac Type Severity Reaction Status Date / Time No Known Allergies Allergy Verified 02/17/21 10:53 Exam Vital signs and Labs for Last 24 Hours: Temp Pulse Resp BP Pulse Ox 98.3 F 78 20 145/81 H 98 02/25/21 13:14 02/25/21 13:14 02/25/21 13:14 02/25/21 13:14 02/25
--- NOTE | 2021-02-25 14:47 | PC.NURSE ---
Pt arrived to the floor via stretcher accompanied by Rebekah Snell, RN and Julian Hatfield RN. He is alert and oriented x4. Lungs are clear but diminished t/o. He is on RA w/O2 sats in the upper 90's. Bowel sounds are active x4. Abdomen is large, round and non-tender. +1/2 edema to ble. He has ambulated to the bathroom independently. He is tolerating his clear liquid diet. IV to right hand is patent and infusing LR @ 125 mls/hr. He has had no complaints since arriving to the floor.
--- NOTE | 2021-02-25 15:00 | XR_ITS ---
PROCEDURE INFORMATION: Exam: XR Complete Acute Abdomen Series Including Chest Exam date and time: 02/25/21 03:00 PM Age: 55 years old Clinical indication: Other: Follow up free air; Prior surgery TECHNIQUE: Imaging protocol: XR complete acute abdomen series, including 2 or more views of the abdomen and a single view chest. COMPARISON: CT ABDOMEN PELVIS WO CON 02/25/21 11:16 AM FINDINGS: Lungs: Normal. No consolidation. Pleural spaces: Normal. No pleural effusions. No pneumothorax. Heart/Mediastinum: Normal. No cardiomegaly. Gastrointestinal tract: Nonspecific gas pattern. Intraperitoneal space: Free air under the right hemidiaphragm related to recent surgery. Organs: Cholecystectomy. Bones/joints: Normal. No acute fracture. Soft tissues: Normal. IMPRESSION: 1. Free air under the right hemidiaphragm related to recent surgery. 2. Nonspecific gas pattern. 3. Cholecystectomy.
[2021-02-26] VITALS: BP 138/96; PULSE 95; RESP 18; TEMP 36.7; O2SAT 97
--- NOTE | 2021-02-26 03:23 | PC.NURSE ---
Patient is alert and oriented, he has had no complaints this shift. He has rested well through the night with his home CPAP in use. Patient's abdomen is large and round and tender when palpated. Patient bowel sounds are active in all quadrants. He does have +1 pitting edema bilaterally to his lower legs and feet. Patient states that is normal for him. Vital signs are stable, Call light within reach. Will continue to monitor.
[2021-02-26 04:00] VITALS: BP 144/89; PULSE 95; RESP 18; TEMP 37; O2SAT 95
[2021-02-26 05:00] VITALS: BMI 48.2
--- NOTE | 2021-02-26 06:00 | XR_ITS ---
PROCEDURE INFORMATION: Exam: XR Complete Acute Abdomen Series Including Chest Exam date and time: 02/26/2021 6:00 AM Age: 55 years old Clinical indication: Patient HX: Free air fu xrays TECHNIQUE: Imaging protocol: XR complete acute abdomen series, including 2 or more views of the abdomen and a single view chest. COMPARISON: 1. Report from CT abdomen pelvis 02/25/2021 is available, images are not available for direct comparison 2. CR XR ACUTE ABDOMEN SERIES 02/25/2021 3:02 PM FINDINGS: Lungs: Hypoventilatory changes of the lungs, with perihilar vascular crowding and a diffuse increase in pulmonary parenchymal density. No consolidation. Mild right base atelectasis. Pleural spaces: Normal. No pleural effusions. No pneumothorax. Heart/Mediastinum: Normal. No cardiomegaly. Diaphragm: There is nonspecific elevation of the right hemidiaphragm. Gastrointestinal tract: Normal. No bowel dilation. Intraperitoneal space: Free intraperitoneal gas again noted under the right hemidiaphragm. Organs: There has been a cholecystectomy. Bones/joints: Normal. No acute fracture. Soft tissues: Normal. IMPRESSION: 1. Free intraperitoneal air under the right hemidiaphragm is unchanged. 2. Nonobstructive bowel gas pattern. 3. Hypoventilatory changes in the lungs with mild right base atelectasis and elevation of the right hemidiaphragm.
--- NOTE | 2021-02-26 07:00 | HMH.GSPN ---
Subjective Patient reports: no new complaints, feels better, flatus Progress Note: A&P (1) Cecum mass Status: Acute (2) Free intraperitoneal air Status: Acute Assessment and plan: This most likely represents benign pneumoperitoneum secondary to transmural air (as opposed to gus perforation). Assessment and Plan for All Diagnoses:: Follow-up a.m. labs Continue serial abdominal exams Continue antibiotics Possible discharge home later today with close outpatient follow-up Exam Vital signs and Labs for Last 24 Hours: Temp Pulse Resp BP Pulse Ox 98.6 F 95 H 18 144/89 H 95 02/26/21 04:00 02/26/21 04:00 02/26/21 04:00 02/26/21 04:00 02/26/21 04:00 I & O for Last 24 hours: Intake & Output 02/23/21 02/24/21 02/25/21 02/26/21 11:59 11:59 11:59 11:59 Intake Total 3318 / 3318 Balance 3318 / 3318 Weight 330 lb 325 lb 5 oz - Constitutional no acute distress - *Routine Respiratory Exam Absent: respiratory distress - *Routine Cardiovascular Exam Present: RRR - *Routine Abdominal Exam Present: soft. Absent: rebound, guarding Comments: Some mild to moderate tenderness to deep palpation in the mid abdomen and right abdomen.
[2021-02-26 07:50] VITALS: BP 149/98; PULSE 89; RESP 16; TEMP 37.1; O2SAT 98
[2021-02-26 08:22] LABS: Basophils # 0.1 K/mm3 (0-0.2); Basophils % 0.5 % (0.1-2.0); Eosinophils # 0.1 K/mm3 (0.0-0.4); Eosinophils % 0.8 % (0.1-12.0); Hemoglobin 8.6 g/dL (14.1-18.0); Lymphocytes # 0.9 K/mm3 (0.7-4.5); Lymphocytes % 9.7 % (10-50); Mean Corpuscular HGB Conc 30.8 g/dL (31.8-35.4); Mean Corpuscular Volume 77.9 fl (80-94); Mean Platelet Volume 7.1 fl (7.4-10.4); Monocytes # 0.4 K/mm3 (0.1-1.0); Monocytes % 4.5 % (1.7-9.3); Neutrophils % 84.5 % (37.0-80.0); Platelet Count 389 K/mm3 (142-424); Red Blood Count 3.59 M/mm3 (4.60-6.20); Red Cell Distribution Width 16.4 % (11.5-17.5); White Blood Count 9.5 K/mm3 (4.8-10.8)
[2021-02-26 08:38] LABS: Chloride 109 mmol/L (98-107)
[2021-02-26 08:39] LABS: Potassium 3.7 mmoL/L (3.5-5.1); Sodium 141 mmol/L (136-145)
[2021-02-26 08:42] LABS: Anion Gap 11.7 mEq/L (5-15); Blood Urea Nitrogen 8 mg/dl (9-20); Calcium 8.2 mg/dl (8.4-10.2); Carbon Dioxide 24 mmol/L (22.0-30.0); Creatinine Clearance Estimated 66 mL/min (50-200); Estimated Glomerular Filt Rate 62 ml/min (>60); GFR (African American) 76 ML/MIN (>60); Glucose 112 mg/dl (74-100)
--- NOTE | 2021-02-26 09:58 | HMH.DCSUM ---
General - General Admission date:: 02/25/21 Discharge date: 02/26/21 HPI HPI: HPI: This 55-year-old gentleman who underwent a colonoscopy earlier today. He was found to have a very complex polypoid lesion at the appendiceal orifice. A very large percentage of the lesion was excised by way of snare polypectomy. Complete excision could not be confirmed. Due to the exceptionally difficult nature of the procedure, follow-up abdominal films were obtained. Some extraluminal air was noted in the right upper quadrant. A follow-up CT scan without contrast confirmed extraluminal air. The patient did have some mild to moderate discomfort; however, no signs consistent with peritonitis were noted. The decision was made to initially proceed with admission for IV antibiotics, serial abdominal exams, and ongoing discussion with regard to surgical management. Forwarded from recent office evaluation: This is a 55-year-old gentleman seen in consultation from Dr. Huynh for colonoscopy. He has recently been diagnosed with anemia and blood per rectum. He describes kind of dark blood per rectum. His symptoms are associated with bowel movements; however, some blood is noted in between . He states that he underwent esophagogastroduodenoscopy at the [facility] about 2 to 3 weeks ago . He believes the scope was pretty much normal . Hospital Course Hospital Course: He remained afebrile with stable and normal vital signs. On the morning of discharge he stated he felt quite a bit better . He had minimal tenderness to abdominal exam. Follow-up films revealed stable pneumoperitoneum. His white blood cell count was normal. He was deemed appropriate for discharge with close outpatient follow-up. Augmentin prescription written. Note: It was felt that the patient's radiographic evidence of pneumoperitoneum represented benign pneumoperitoneum secondary to transmural CO2 fluctuation as opposed to (as opposed to gus perforation). Objective Vital signs: Temp Pulse Resp BP Pulse Ox 98.7 F 89 16 149/98 H 98 02/26/21 07:50 02/26/21 07:50 02/26/21 07:50 02/26/21 07:50 02/26/21 07:50 no acute distress - *Routine HEENT Exam Head: Present: normocephalic Eye: Present: EOMI ENT: Present: mucous membranes moist - *Routine Neck Exam Present: full ROM - Routine Chest/Breast/Axilla Exam Chest wall: Absent: tenderness - *Routine Respiratory Exam Absent: respiratory distress - *Routine Cardiovascular Exam Present: RRR - *Routine Abdominal Exam Present: soft - *Routine Rectal Exam Visual: Absent: gus blood - *Routine Exam Patient deferred: penile exam - *Routine Extremities Exam Present: full ROM - Routine Back/Spine/Pelvis Exam Back/Spine: Present: full ROM - *Routine Skin Exam Present: intact - *Routine Neurological Exam Present: alert - Routine Psychiatric Exam Present: normal affect Results Labs on day of discharge: Labs from last 24 hours 02/26/21 02/26/21 08:03 08:03 WBC 9.5 RBC 3.59 L Hgb 8.6 L Hct 28.0 L MCV 77.9 L MCH 24.0 L MCHC 30.8 L RDW 16.4 Plt Count 389 MPV 7.1 L Neut % (Auto) 84.5 H Lymph % (Auto) 9.7 L [place] % (Auto) 4.5 Eos % (Auto) 0.8 Baso % (Auto) 0.5 Neut # (Auto) 8.0 H Lymph # (Auto) 0.9 [place] # (Auto) 0.4 Eos # (Auto) 0.1 Baso # (Auto) 0.1 Sodium 141 Potassium 3.7 Chloride 109 H Carbon Dioxide 24 Anion Gap 11.7 BUN 8 L Creatinine 1.20 Estimated Creat Clear 66 Estimated GFR 62 Est GFR ( Amer) 76 Glucose 112 H Calcium 8.2 L DS: Diagnosis - Discharge Diagnosis (1) Cecum mass Status: Acute (2) Free intraperitoneal air Status: Acute Discharge Plan - Patient Discharge Instructions ACTIVITY: Continue current activity DIET: other (Clear liquids for 24 to 48 hours followed by full liquids) Additional Instructions: Repeat CBC
== END 2021-02-26 10:48 | disposition home or self-care (01) ==
LOC: 2ND 12:24
PROVIDERS: Admitting Provider Surgery; PCP Emergency Medicine; Visit Provider Surgery
PROC: 0DJD8ZZ Inspection of Lower Intestinal Tract, Via Natural or Artificial Opening Endoscopic (ICD-10-PCS; CPT 45385; principal; 2021-02-25 07:30)
DX: C18.0 Malignant neoplasm of cecum (principal); K66.8 Other specified disorders of peritoneum; F41.9 Anxiety disorder, unspecified; I50.9 Heart failure, unspecified; I25.10 Atherosclerotic heart disease of native coronary artery without angina pectoris; K21.9 Gastro-esophageal reflux disease without esophagitis; F32.9 Major depressive disorder, single episode, unspecified; I11.0 Hypertensive heart disease with heart failure; G43.909 Migraine, unspecified, not intractable, without status migrainosus
CPT/HCPCS: 45385; 36415; 74021; 74176; 80048; 85025; G0378; J2543

== ENCOUNTER → 2021-03-03 13:45 | Outpatient (CLI) | payer OTHER, SELFPAY ==
--- NOTE | 2021-03-03 13:57 | XR_ITS ---
PROCEDURE: XR ACUTE ABDOMEN SERIES CLINICAL INDICATION: pneumoperitoneum COMPARISON: CT CT ABDOMEN PELVIS WO CON from 02/25/2021 CR XR ACUTE ABDOMEN SERIES from 02/25/2021 CR XR ACUTE ABDOMEN SERIES from 02/26/2021 FINDINGS: Frontal view of the chest shows no acute finding. Upright and supine views of the abdomen show a nonspecific bowel gas pattern with a few scattered air-fluid levels within the small bowel. Previously noted pneumoperitoneum is not identified on today's exam. The right lateral aspect of the abdomen is not included completely on the images. IMPRESSION: Pneumoperitoneum not identified on today's exam. The remains gas-filled loops of small bowel with a few air-fluid levels Dictated by: Jamel Maradiaga MD 03/03/2021 15:05 Jamel Maradiaga MD in [place] 03/03/2021 15:05
[2021-03-03 14:20] LABS: Basophils # 0.1 K/mm3 (0-0.2); Basophils % 1.2 % (0.1-2.0); Eosinophils # 0.2 K/mm3 (0.0-0.4); Eosinophils % 4.7 % (0.1-12.0); Hematocrit 30.4 % (42.0-52.0); Hemoglobin 9.3 g/dL (14.1-18.0); Lymphocytes # 1.3 K/mm3 (0.7-4.5); Lymphocytes % 26.8 % (10-50); Mean Corpuscular HGB Conc 30.5 g/dL (31.8-35.4); Mean Corpuscular Hemoglobin 23.5 pg (27.0-31.2); Mean Platelet Volume 7.9 fl (7.4-10.4); Monocytes # 0.2 K/mm3 (0.1-1.0); Monocytes % 4.3 % (1.7-9.3); Neutrophils # 3.2 K/mm3 (1.8-7.8); Neutrophils % 63.1 % (37.0-80.0); Platelet Count 420 K/mm3 (142-424); Red Blood Count 3.94 M/mm3 (4.60-6.20); Red Cell Distribution Width 15.8 % (11.5-17.5)
== END ==
PROVIDERS: Visit Provider Surgery
DX: K63.89 Other specified diseases of intestine (principal); K66.8 Other specified disorders of peritoneum
CPT/HCPCS: 36415; 74021; 85025

== ENCOUNTER → 2021-03-09 12:11 | Outpatient (CLI) | payer OTHER, SELFPAY ==
[2021-03-09 12:48] LABS: Basophils # 0.2 K/mm3 (0-0.2); Basophils % 3.3 % (0.1-2.0); Eosinophils # 0.3 K/mm3 (0.0-0.4); Eosinophils % 5.1 % (0.1-12.0); Hematocrit 32.4 % (42.0-52.0); Hemoglobin 9.7 g/dL (14.1-18.0); Lymphocytes # 1.7 K/mm3 (0.7-4.5); Lymphocytes % 24.7 % (10-50); Mean Corpuscular Hemoglobin 23.6 pg (27.0-31.2); Mean Corpuscular Volume 78.6 fl (80-94); Mean Platelet Volume 13.5 fl (7.4-10.4); Monocytes # 0.3 K/mm3 (0.1-1.0); Monocytes % 4.8 % (1.7-9.3); Neutrophils # 4.2 K/mm3 (1.8-7.8); Neutrophils % 62.2 % (37.0-80.0); Platelet Count 348 K/mm3 (142-424); Red Blood Count 4.12 M/mm3 (4.60-6.20); Red Cell Distribution Width 19.6 % (11.5-17.5); White Blood Count 6.8 K/mm3 (4.8-10.8)
[2021-03-09 13:25] LABS: Chloride 107 mmol/L (98-107)
[2021-03-09 13:26] LABS: Potassium 4.6 mmoL/L (3.5-5.1); Sodium 142 mmol/L (136-145)
[2021-03-09 13:28] LABS: Alanine Aminotransferase 24 U/L (12-78); Alkaline Phosphatase 58 U/L (38-126); Anion Gap 10.6 mEq/L (5-15); Aspartate Amino Transferase 21 U/L (17-59); Bilirubin,Total 0.3 mg/dl (0.2-1.3); Blood Urea Nitrogen 12 mg/dl (9-20); Carbon Dioxide 29 mmol/L (22.0-30.0); Estimated Glomerular Filt Rate 62 ml/min (>60); GFR (African American) 76 ML/MIN (>60)
[2021-03-09 13:29] LABS: Albumin/Globulin Ratio 1.5 (1.1-1.8); Globulin 2.7 g/dL (1.3-3.2); Glucose 95 mg/dl (74-100); Total Protein,Serum 6.7 g/dl (6.3-8.2)
[2021-03-10 11:19] LABS: CEA 4.2 ng/mL (0.0-4.7)
== END ==
PROVIDERS: Visit Provider Surgery
DX: Z01.812 Encounter for preprocedural laboratory examination (principal); Z11.52 Encounter for screening for COVID-19; C18.9 Malignant neoplasm of colon, unspecified
CPT/HCPCS: 36415; 80053; 82378; 82565; 84520; 85025; U0003